=== PATIENT | male | born 1950 ===

== ENCOUNTER 2021-01-20 09:18 | Outpatient (CLI) | payer MEDICAID, SELFPAY | END 2021-01-20 09:19 | disposition home or self-care (01) | LOC: WOUND 09:18 | PROVIDERS: Family Provider Internal Medicine; PCP Internal Medicine; Visit Provider Nurse Practitioner Family | DX: L89.890 Pressure ulcer of other site, unstageable (principal) | CPT/HCPCS: 11042; G0463 ==

== ENCOUNTER 2021-03-16 08:24 | Outpatient (CLI) | payer MEDICAID, SELFPAY | END 2021-03-16 08:25 | disposition home or self-care (01) | LOC: WOUND 08:25 | PROVIDERS: Family Provider Internal Medicine; PCP Internal Medicine; Visit Provider Nurse Practitioner Family | DX: I96 Gangrene, not elsewhere classified (principal); Z11.52 Encounter for screening for COVID-19; L89.324 Pressure ulcer of left buttock, stage 4; Z20.822 Contact with and (suspected) exposure to COVID-19; Z01.812 Encounter for preprocedural laboratory examination | CPT/HCPCS: 11042; 87070; 87077; 87176; 87186; 87205; 87635 ==

== ENCOUNTER 2021-03-21 09:25 | Day surgery (SDC) | payer MEDICAID, SELFPAY ==
[2021-03-20 14:56] VITALS: BMI 30.7
[2021-03-21] VITALS (7 sets, daily range): BP systolic 103–125; BP diastolic 57–70; PULSE 58–86; RESP 16–20; TEMP 36.1–36.9; O2SAT 95–98
[2021-03-21 10:08] LABS: Glucose Point of Care 99 mg/dL (70-110)
[2021-03-21] MEDS: sodium chloride 0.9% 1,000 ML 30 ML IV (10:19)
[2021-03-21] MEDS: acetaminophen 1,000 MG/100 ML PIGGYBACK 400 MG IV (10:46)
--- NOTE | 2021-03-21 11:47 | W.PM.OPSUD ---
Surgery/Procedure H&P Update DATE OF PROCEDURE: March 21, 2021 DATE H&P PERFORMED: 03/16/21 H&P UPDATE INFORMATION: I have reviewed H&P completed within last 30 days, I have examined patient prior to procedure and No changes to prior documentation PRIMARY INDICATION FOR PROCEDURE: THE SAME PLANNED PROCEDURE: Operation Date: 03/21/21 11:10 Proposed Procedures p Debridement [id number] L89.324(Not Applicable) - Tarun Coto MD
--- NOTE | 2021-03-21 12:09 | P.ANESASSM_ITS ---
Pre-Anesthetic Assessment Pre-Anesthetic Assessment: Height/Weight: Height 1.68 m Weight 86.183 kg Temp Pulse Resp BP Pulse Ox 97.3 F L 86 18 125/70 98 03/21/21 09:53 03/21/21 09:53 03/21/21 09:53 03/21/21 09:53 03/21/21 09:53 Proposed Procedure: Operation Date: 03/21/21 11:10 Proposed Procedures p Debridement [id number] L89.324(Not Applicable) - Tarun Coto MD Was Beta Jorgito taken within 24 hours: N/A Was Clonidine taken within 24 h ours: N/A Last intake: Intake Last Liquid Date 03/20/21 Last Liquid Time 17:00 Last Solid Date 03/20/21 Last Solid Time 17:00 Social: Social History: No alcohol and No tobacco Exam: Pre-Anes Outpt Exam: alert, clear to auscultation bilaterally and regular rate & rhythm Additional Exam Findings (including area of procedure): confused. Head injury Airway: Submandibular: WNL Cervical ROM: WNL MP: 2 Dentition: False History/ROS: No significant history except as noted and No significant complaints Pulmonary: Pulmonary: None reported CV/HEM: CV/HEM: HTN : : None reported Hepatic: Hepatic: None reported GI: GI: None reported Metabolic: Metabolic: DM Musc/skel: Musc/skel: None reported Neuropsych: Neuropsych: Seizure Anesthetic Plan: ASA status: 3 Anesthesia: MAC Risk of > 500 ml blood loss (7ml/kg in children): No Meds/Allergies Current Medications: Current Medications Generic Name Dose Route Start Last Admin Trade Name Arturq PRN Reason Stop Dose Admin Sodium Chloride 1,000 mls @ 30 ml s/hr 03/21/21 09:45 03/21/21 10:19 Sodium Chloride 0.9% IV 03/22/21 09:44 30 mls/hr .Q24H KING Administration PFSH Anesthesia PFSH: Medical History Epilepsy, unspecified, not intractable, without status epilepticus Essential (primary) hypertension Personal history of traumatic brain injury Type 2 diabetes mellitus without complications Data Anesthesia Other Labs: Laboratory Results - last 48 hr 03/21/21 10:01 POC Glucose 99 Cardiac Studies: No Data to Display
--- NOTE | 2021-03-21 12:13 | W.PM.OPSFHP ---
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 Patient was seen and evaluated by nurse practitioner Ms. Patel last and she called me with her concerns about the ulcer. Initial debridement was done at the wound care center with the plan to take the patient for surgical debridement today in the OR in a more controlled environment. ROS All systems have been reviewed negative except as per the above or per problem list Medications/Allergies* Home Medications Medication Instructions Recorded Confirmed Type acetaminophen [Tylenol] 650 mg PO Q4-5H PRN 03/20/21 03/21/21 History allopurinol 200 mg PO DAILY 03/20/21 03/21/21 History atorvastatin [Lipitor] 10 mg PO QPM 03/20/21 03/21/21 History fluticasone propionate [Flonase] 2 spray INTRANASAL DAILY 03/20/21 03/21/21 History gemfibrozil 300 mg PO BEDTIME 03/20/21 03/21/21 History insulin detemir U-100 [Levemir 100 unit SUBCUT DAILY 03/20/21 03/21/21 History U-100 Insulin] levetiracetam [Keppra] 500 mg PO BEDTIME 03/20/21 03/21/21 History levetiracetam [Keppra] 750 mg PO DAILY 03/20/21 03/21/21 History omeprazole 20 mg PO DAILY 03/20/21 03/21/21 History venlafaxine [Effexor] 37.5 mg PO DAILY 03/20/21 03/21/21 History Allergies/Adverse Reactions Allergy/AdvReac Type Severity Reaction Status Date / Time aspirin Allergy Unknown Unknown Verified 03/21/21 12:14 Penicillins Allergy Unknown Unknown Verified 03/21/21 12:14 Current Medications: Generic Name Dose Route Start Last Admin Trade Name Freq PRN Reason Stop Dose Admin Sodium Chloride 1,000 mls @ 30 mls/hr 03/21/21 09:45 03/21/21 10:19 Sodium Chloride 0.9% IV 03/22/21 09:44 30 mls/hr .Q24H KING Administration Pertinent History/Comorbid Conditions* Medical History (Updated 05/31/20 @ 17:03 by Danilo Gonzalez MD) Epilepsy, unspecified, not intractable, without status epilepticus Essential (primary) hypertension Personal history of traumatic brain injury Type 2 diabetes mellitus without complications Pertinent Exam Findings alert, regular rate & rhythm, operative site marked and procedure specific exam findings (Left gluteal pressure injury ulcer dressing in place) Recommendations Surgery/Procedure today (Debridement of left gluteal ulcer) Coding Level of Care Code Acute 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
[2021-03-21] MEDS: clindamycin 600 MG/50 ML PREMIX 100 MG IV (12:25)
[2021-03-21] MEDS: lidocaine 2% INJ 20 mL INJECTION (13:05)
--- NOTE | 2021-03-21 13:14 | P.OP_ITS ---
Operative Report Date of procedure: March 21, 2021 Pre-op Diagnosis: Left gluteal pressure injury ulcer Post-op diagnosis: same Post-op Findings: Necrotic tissues at the bottom of the ulcer Predebridement measurements5 x 4 x 5 cm post debridement measurements 5 x 5 x 6 cm Procedure Done: Debridement of left gluteal pressure injury ulcer Implants: 2 pieces of Surgicel Kerlix soaked in lidocaine 2% Specimens removed/disposition: Tissues for cultures and sensitivities Ulcer edge for pathology Surgeon: Tarun Coto Roller Die Cutting Machine Operator: industrial safety and health technician Michaela BOLES, medical student Lorie Figueroa Circulating nurse Lm Cordova Anesthesia: MAC (Mis Valentino) Estimated blood loss (mL): 15 Condition: stable Disposition: same day Brief History: Left gluteal pressure injury ulcer. Full H&P per chart as well as informed consent. Procedure: After identifying the patient holding area, the left Gluteal region was marked before the procedure by myself, patient was then taken to the operative suite, was placed in right lateral position Were all pressure points were padded and patient was appropriately secured to the bed., IV antibiotics were given per protocol,IV propofol was infused by the anesthesia provider, I was able to identify 4 pieces of gauze packing the wound prior at the [facility] and those were removed prior to prepping and draping.prep and drape of the wound was done under the usual sterile technique. Time-out was done verifying the patient's name/date of /planned procedure and destination after the procedure, all were in agreement. Started by excising the unhealthy necrotic indurated tissues of the wound. Incision was created at the skin level and went all the way down to the subcutaneous tissues And the musculofascial layer.Sharp debridement was achieved. Using curved Mayos and 15 blade knife.Tunneling was appreciated towards the caudad part of the ulcer. Wound edge biopsy was obtained for permanent pathology and tissue was from the deeper part of the wound were sent for microbiology for cultures and sensitivities. Sharp debridement of pressure injury also all the way to the musculofascial layer. Predebridment measurements 5 x 4 x 5 cm post debridement measurements 5 x 5 x 6 cm Copious and thorough irrigation using Pulsavac 3 L in addition to a liter of vash solution, followed by appropriate hemostasisAnd 2 pieces of Surgicel were applied at the depth of the wound., packing of the wound was done with Kerlix impregnated and lidocaine 2%, followed by ABDs,And surgical plans. Patient tolerated the procedure well, count of instruments,needles and sponges were completed at the end of the procedure. Patient was then taken to the recovery area in stable condition. I was present for the whole entire procedure
--- NOTE | 2021-03-21 13:16 | SUR.PHASEI ---
1311 PATIENT TO PACU FROM OR. NO DISTRESS. DRESSING TO LEFT BUTTOCK, CDI.
--- NOTE | 2021-03-21 13:28 | SUR.PHASEI ---
1326 PATIENT TO OPS. NO DISTRESS.
--- NOTE | 2021-03-21 14:10 | SUR.PHASEII ---
Report called to [facility] and RX sent with patient and transport aid
--- NOTE | 2021-03-21 14:57 | ANE.PACU2 ---
Inpatient post-anesthesia follow up: Airway intact: Yes Vital signs: Temperature 98.5 F Pulse Rate 58 Respiratory Rate 18 Blood Pressure 106/58 Pulse Oximetry 96 Oxygen Delivery Me thod Room Air Oxygen Flow Rate Fraction of Inspir ed Oxygen Hydration adequate: Yes Nausea and vomiting: No Pain level: 4 Mental status: Baseline
== END 2021-03-21 14:42 ==
PROVIDERS: PCP Internal Medicine; Visit Provider Surgery
PROC: (CPT 11043; principal; 2021-03-21 11:00)
DX: L89.324 Pressure ulcer of left buttock, stage 4 (principal); I10 Essential (primary) hypertension; E11.9 Type 2 diabetes mellitus without complications; Z87.820 Personal history of traumatic brain injury
CPT/HCPCS: 11043; 11046; 36416; 82962; 87070; 87075; 87077; 87176; 87186; 87205; 88304; 96365; J2704; J3010; J3490; J7030